=== PATIENT | female | born 1975 ===

== ENCOUNTER 2020-11-08 07:58 | Outpatient (CLI) | payer OTHER ==
[~2020-11-08 07:58] MED LIST: ADVAIR 2501 DISK W/1 IH; ALBUTEROL
== END 2020-11-08 08:10 | disposition home or self-care (01) ==
LOC: SONOGRAMA 07:58 → MAMO-SONO 08:30
PROVIDERS: ATTEND Surgery
DX: R14.1 Gas pain (principal); Z80.0 Family history of malignant neoplasm of digestive organs; R14.0 Abdominal distension (gaseous); R19.4 Change in bowel habit; R10.13 Epigastric pain

== ENCOUNTER 2020-12-05 08:39 | Outpatient (CLI) | payer OTHER | END 2020-12-05 08:45 | disposition home or self-care (01) | LOC: NUCLEAR 08:39 | PROVIDERS: ATTEND Surgery | DX: K81.1 Chronic cholecystitis (principal); R14.1 Gas pain; R14.0 Abdominal distension (gaseous); R19.4 Change in bowel habit; R10.13 Epigastric pain; Z80.0 Family history of malignant neoplasm of digestive organs | CPT/HCPCS: 78226; A9537; J2805 ==

== ENCOUNTER 2020-12-06 13:46 | Day surgery (SDC) | payer OTHER | END 2020-12-06 17:55 | disposition home or self-care (01) | LOC: AMB-ENDOS 13:46 | PROVIDERS: ATTEND Surgery | DX: D13.1 Benign neoplasm of stomach (principal); D13.2 Benign neoplasm of duodenum; K64.8 Other hemorrhoids; Z20.822 Contact with and (suspected) exposure to COVID-19 ==